=== PATIENT | male | born 1955 | race Caucasian/White ===

== ENCOUNTER 2018-11-14 09:14 | Day surgery (SDC) | payer MEDICAID ==
[~2018-11-14 09:14] MED LIST: Midazolam 1 MG/ML 2 ML SDV ONE; Propofol 200 MG/20 ML SDV ONE; fentaNYL 100 MCG/2 ML SDV ONE
[2018-11-14] MEDS ORDERED: Sodium Chloride 0.9% 1,000 ML IV SCH (09:30)
--- NOTE | 2018-11-15 08:23 | OR ---
DATE OF PROCEDURE: 11/14/2018 SURGEON: Pernell Lanza MD PROCEDURE: Colonoscopy. FINDINGS: Transverse colon polyp, completely removed using snare. COMPLICATIONS: None. DOCUMENT MANAGEMENT SPECIALIST: None. ANESTHESIA: MAC. PREOPERATIVE DIAGNOSIS: Screening colonoscopy. POSTOPERATIVE DIAGNOSIS: Screening colonoscopy. RISKS: Risks, benefits, alternatives, and limitations including, but not limited to infection bleeding and perforation were explained to the patient, who wished to proceed. PROCEDURE IN DETAIL: The patient was placed in left lateral decubitus position. Digital rectal exam was performed without abnormality. The scope was introduced atraumatically to the ileocecal valve. The scope was brought back through the ascending, transverse, descending colon, and retroflexed. The aforementioned polyp was in the transverse colon, approximately 8 mm in size, and was completely removed using snare. No other abnormalities were noted. No old or new blood. No diverticulosis or diverticulitis. No evidence of colitis. The patient tolerated the procedure well. Pernell Lanza MD /[id number]
== END 2018-11-14 12:45 | disposition home or self-care (01) ==
LOC: JP.SDS 09:14
PROVIDERS: ATTEND Surgery
DX: Z12.11 Encounter for screening for malignant neoplasm of colon (principal); D12.3 Benign neoplasm of transverse colon; E78.00 Pure hypercholesterolemia, unspecified; J44.9 Chronic obstructive pulmonary disease, unspecified; F17.200 Nicotine dependence, unspecified, uncomplicated; Z88.5 Allergy status to narcotic agent
CPT/HCPCS: 45385; J2250; J2704; J3010; J7030; 88305

== ENCOUNTER 2019-10-06 00:59 | Emergency (ER) | payer MEDICAID ==
[2019-10-06] MEDS ORDERED: 50% Dextrose in Water 50 ML Syringe IVPUSH ONE (01:49)
--- NOTE | 2019-10-06 02:00 | EDM.PDOC ---
ED HPI GENERAL MEDICAL PROBLEM - General Chief Complaint: General Stated Complaint: SOB,BODY NUMB,SORE THROAT Time Seen by Provider: 10/06/19 01:30 Source of Information: Reports: Patient History Limitations: Reports: No Limitations - History of Present Illness INITIAL COMMENTS - FREE TEXT/NARRATIVE: 63-year-old male is here because he is having trouble sleeping due to persistent heartburn. He also wants his prostate checked because he has been having trouble with urination for the past several months. No fevers or chills , he also feels that at times his lower extremities go numb. He heard that could be a symptom of the coronavirus. Onset: Unknown/Unsure Associated Symptoms: Reports: No Other Symptoms, Other (Chronic back and knee pain). Denies: Malaise, Nausea/Vomiting epigastric Pain Score (Numeric/FACES): 4 - Related Data Allergies Allergy/AdvReac Type Severity Reaction Status Date / Time oxycodone Allergy Mild Nausea and Verified 10/06/19 01:26 Vomiting Home Meds: Home Meds Acetaminophen [Tylenol Extra Strength] 1,000 mg PO BEDTIME 11/12/18 [History] Albuterol Sulfate [Albuterol Sulfate Hfa] 1 - 2 puff IH Q4H PRN 11/12/18 [ History] Albuterol/Ipratropium [Combivent Respimat] 1 puff IH QID 11/12/18 [History] Fluticasone Propionate [Flonase] 2 squirt NASBOTH DAILY 11/12/18 [History] Nicotine [Habitrol] 14 mg TOP DAILY 11/12/18 [History] atorvaSTATin Calcium [Atorvastatin Calcium] 40 mg PO DAILY 11/12/18 [History] Past Medical History HEENT History: Reports: Allergic Rhinitis, Hard of Hearing, Sinusitis, Other ( See Below) Other HEENT History: Reading glasses Cardiovascular History: Reports: High Cholesterol, Hypertension Respiratory History: Reports: COPD Gastrointestinal History: Reports: Other (See Below) Other Gastrointestinal History: acid reflux Genitourinary History: Reports: Other (See Below) Other Genitourinary History: Trouble emptying bladder Musculoskeletal History: Reports: Fracture Neurological History: Reports: Headaches, Chronic Psychiatric History: Reports: Addiction, Other (See Below) Other Psychiatric History: ETOH - Infectious Disease History Infectious Disease History: Reports: Chicken Pox, Measles - Past Surgical History Respiratory Surgical History: Reports: None GI Surgical History: Reports: Appendectomy, EGD Musculoskeletal Surgical History: Reports: Arthroscopic Procedure, Other (See Below) Other Musculoskeletal Surgeries/Procedures:: Left lower arm fx/bone graft Social & Family History - Tobacco Use Smoking Status *Q: Current Every Day Smoker Years of Tobacco use: 32 Packs/Tins Daily: 0.5 - Caffeine Use Caffeine Use: Reports: Coffee, Soda - Recreational Drug Use Recreational Drug Use: No ED ROS GENERAL - Review of Systems Review Of Systems: See Below Constitutional: Denies: Fever, Chills HEENT: Denies: Vision Change Respiratory: Reports: Shortness of Breath, Wheezing, Cough Cardiovascular: Denies: Chest Pain GI/Abdominal: Denies: Abdominal Pain, Nausea, Vomiting : Reports: Urgency, Other (Urinary hesitancy) Skin: Reports: Other (Bruises easily) Neurological: Denies: Dizziness, Headache, Difficulty Walking ED EXAM, GENERAL - Physical Exam Exam: See Below Exam Limited By: No Limitations General Appearance: Alert, No Apparent Distress Ears: Normal TMs Head: Atraumatic Respiratory/Chest: No Respiratory Distress, Wheezing (Diffuse expiratory wheezes , no rhonchi or rales) Cardiovascular: Regular Rate, Rhythm GI/Abdominal: Soft, Non-Tender Neurological: Alert, Oriented Psychiatric: Normal Affect, Normal Mood Skin Exam: Warm, Dry Course - Vital Signs Last Recorded V/S: Last Vital Signs Temp 97.6 F 10/06/19 01:30 Pulse 78 10/06/19 01:30 Resp 16 10/06/19 01:30 BP 178/89 H 10/06/19 01:30 Pulse Ox 95 10/06/19 01:30 - Re-Assessments/Exams Free Text/Narrative Re-Assessment/Exam: 10/06/19 02:04 Recommended daily omeprazole, and wrote him a prescription for 40 mg daily for 5 days, then 20 mg daily for an additional 2 weeks. Encouraged him to try to decrease his smoking, and he needs to make an appointment with his primary provider to check his prostate. Departure - Departure Time of Disposition: 02:20 Disposition: Home, Self-Care 01 Clinical Impression: Acid reflux Qualifiers: Esophagitis presence: esophagitis presence not specified Qualified Code(s): K21.9 - Gastro-esophageal reflux disease without esophagitis - Discharge Information Instructions: Heartburn, [id number] Referrals: Genie Waggoner PA [Primary Care Provider] - Forms: ED Department Discharge Care Plan Goals: Continue your current medications, and take omeprazole as directed for the next 3 weeks. Recheck with your primary provider in 2 to 3 weeks to discuss any improvement with the medication, as well as your prostate or other chronic concerns. Sepsis Event Note - Evaluation Sepsis Screening Result: No Definite Risk - Focused Exam Vital Signs: Vital Signs Temp Pulse Resp BP Pulse Ox 10/06/19 01:30 97.6 F 78 16 178/89 H 95 10/06/19 01:11 97.6 F 78 16 178/89 H 95 Date Exam was Performed: 10/06/19 Time Exam was Performed: 02:22
== END 2019-10-06 02:21 | disposition home or self-care (01) ==
LOC: JP.ED 00:59
DX: K21.9 Gastro-esophageal reflux disease without esophagitis (principal); I10 Essential (primary) hypertension; E78.00 Pure hypercholesterolemia, unspecified; J44.9 Chronic obstructive pulmonary disease, unspecified; F17.210 Nicotine dependence, cigarettes, uncomplicated; Z79.899 Other long term (current) drug therapy; Z88.6 Allergy status to analgesic agent
CPT/HCPCS: 99283

== ENCOUNTER 2019-12-21 11:40 | Emergency (ER) | payer MEDICAID ==
--- NOTE | 2019-12-21 12:09 | EDM.PDOC ---
ED HPI GENERAL MEDICAL PROBLEM - General Chief Complaint: Respiratory Problem Stated Complaint: MEDICAL [facility]IA [facility] Time Seen by Provider: 12/21/19 12:03 Source of Information: Reports: Patient, EMS History Limitations: Reports: Other (Anxious) - History of Present Illness INITIAL COMMENTS - FREE TEXT/NARRATIVE: Patient presents by ambulance from his work place after describing progressive shortness of breath over the last 3 or so days. He has a job that involves a lot of walking at his workplace and has a history of COPD on multiple inhalers. He also has been drinking heavily over the last 3 months because he lost a different job earlier in the year. In a week's time, he may go through a combined amount of distilled spirits of 3 or 4 gallons. His last drink was approximately 1600 hrs. yesterday, 19 December, He has had increasing shortness of breath at rest and also with activity and today he asked his loss to call 911. The patient has not used any inhaled medications in the last couple days. He had difficulty getting his inhaled medications over the quiroz virus timeframe because they did not want customers coming to the pharmacy and there was a co- pay with each medication so consequently they would not male medications to him without the co-pay previously arranged. He is very concerned that he is going to have DTs as that occurs when he has absence of alcohol after a period of extended use, such as now. He also is requesting a nicotine patch. He is hoping to be admitted to get him through this episode. Onset: Gradual Duration: Day(s): (2) Location: Reports: Chest, Generalized Quality: Reports: Same as Previous Episode Improves with: Reports: None Worsens with: Reports: None - Related Data Allergies Allergy/AdvReac Type Severity Reaction Status Date / Time oxycodone Allergy Mild Nausea and Verified 12/21/19 11:46 Vomiting Home Meds: Home Meds Acetaminophen [Tylenol Extra Strength] 1,000 mg PO BEDTIME 11/12/18 [History] Albuterol Sulfate [Albuterol Sulfate Hfa] 1 - 2 puff IH Q4H PRN 11/12/18 [History] Albuterol/Ipratropium [Combivent Respimat] 1 puff IH QID 11/12/18 [History] Fluticasone Propionate [Flonase] 2 squirt NASBOTH DAILY 11/12/18 [History] Nicotine [Habitrol] 14 mg TOP DAILY 11/12/18 [History] atorvaSTATin Calcium [Atorvastatin Calcium] 40 mg PO DAILY 11/12/18 [History] Budesonide/Formoterol [Symbicort 80-4.5 MCG] 1 puff INH DAILY 12/21/19 [History] Omeprazole 1 tab PO DAILY 12/21/19 [History] Terazosin HCl [Terazosin] 1 tab PO DAILY 12/21/19 [History] Past Medical History HEENT History: Reports: Allergic Rhinitis, Hard of Hearing, Sinusitis, Other (See Below) Other HEENT History: Reading glasses Cardiovascular History: Reports: High Cholesterol, Hypertension Respiratory History: Reports: COPD Gastrointestinal History: Reports: Other (See Below) Other Gastrointestinal History: acid reflux Genitourinary History: Reports: Other (See Below) Other Genitourinary History: Trouble emptying bladder Musculoskeletal History: Reports: Fracture Neurological History: Reports: Headaches, Chronic Psychiatric History: Reports: Addiction, Other (See Below) Other Psychiatric History: ETOH - Infectious Disease History Infectious Disease History: Reports: Chicken Pox, Measles - Past Surgical History Respiratory Surgical History: Reports: None GI Surgical History: Reports: Appendectomy, EGD Musculoskeletal Surgical History: Reports: Arthroscopic Procedure, Other (See Below) Other Musculoskeletal Surgeries/Procedures:: Left lower arm fx/bone graft Social & Family History - Tobacco Use Smoking Status *Q: Current Every Day Smoker Years of Tobacco use: 40 Packs/Tins Daily: 1 - Caffeine Use Caffeine Use: Reports: Coffee, Soda ED ROS GENERAL - Review of Systems Review Of Systems: See Below Constitutional: Reports: Malaise HEENT: Reports: No Symptoms Respiratory: Reports: Shortness of Breath, Wheezing, Cough Cardiovascular: Reports: Dyspnea on Exertion. Denies: Chest Pain GI/Abdominal: Reports: Abdominal Pain : Reports: No Symptoms Musculoskeletal: Reports: Other (Lateral rib pain from coughing.) Psychiatric: Reports: Anxiety ED EXAM, GENERAL - Physical Exam Exam: See Below Exam Limited By: No Limitations General Appearance: Moderate Distress Nose: Normal Inspection Head: Atraumatic Respiratory/Chest: Lungs Clear, Respiratory Distress (Mild). No: Chest Non- Tender, Rales, Rhonchi, Wheezing, Accessory Muscle Use Cardiovascular: Regular Rate, Rhythm GI/Abdominal: Soft, Non-Tender Extremities: Normal Inspection Neurological: Alert Psychiatric: Anxious EKG INTERPRETATION EKG Date: 12/21/19 Time: 12:38 Rhythm: NSR Rate (Beats/Min): 92 Adin: LAD-Left Adin Deviation P-Wave: Present QRS: Normal ST-T: Normal QT: Normal Comparison: NA - No Prior EKG Course - Vital Signs Last Recorded V/S: Last Vital Signs Temp 36.0 C L 12/21/19 14:50 Pulse 97 12/21/19 14:50 Resp 17 12/21/19 14:50 BP 143/78 H 12/21/19 14:50 Pulse Ox 97 12/21/19 14:50 - Orders/Labs/Meds Orders: Active Orders 24 hr Category Date Time Status EKG Documentation Completion [RC] ASDIRECTED Care 12/21/19 12:25 Ordered RT Aerosol Therapy [RC] ASDIRECTED Care 12/21/19 12:26 Ordered Chest 2V [CR] Stat Exams 12/21/19 12:23 Ordered Heparin Sodium/D5W [Heparin 25,000 Units in D5W 500 ML] Med 12/21/19 14:45 Ordered 25,000 units in 500 ml IV ASDIRECTED Sodium Chloride 0.9% [Saline Flush] Med 12/21/19 12:26 Ordered 10 ml FLUSH ASDIRECTED PRN Saline Lock Insert [OM.PC] Routine Oth 12/21/19 12:26 Ordered EKG 12 Lead [EK] Routine Ther 12/21/19 12:24 Ordered Medication Orders Heparin Sodium/Dextrose (Heparin 25,000 Units In D5w 500 Ml) 25,000 units in 500 mls @ 20 mls/hr IV ASDIRECTED ERNA Last Admin: 12/21/19 14:42 Dose: 1,000 units/hr, 20 mls/hr Documented by: Sodium Chloride (Saline Flush) 10 ml FLUSH ASDIRECTED PRN PRN Reason: Keep Vein Open Last Admin: 12/21/19 14:46 Dose: 10 ml Documented by: Labs: Laboratory Tests 12/21/19 12/21/19 12/21/19 Range/Units 12:58 12:58 12:58 WBC 10.5 (4.5-11.0) K/uL RBC 4.51 (4.30-5.90) M/uL Hgb 15.3 H (12.0-15.0) g/dL Hct 45.7 (40.0-54.0) % MCV 101 H (80-98) fL MCH 34 H (27-31) pg MCHC 34 (32-36) % Plt Count 198 (150-400) K/uL Neut % (Auto) 82 H (36-66) % Lymph % (Auto) 10 L (24-44) % Waller % (Auto) 8 H (2-6) % Eos % (Auto) 0 L (2-4) % Baso % (Auto) 0 (0-1) % Sodium 141 (140-148) mmol/L Potassium 3.5 L (3.6-5.2) mmol/L Chloride 99 L (100-108) mmol/L Carbon Dioxide 26 (21-32) mmol/L Anion Gap 19.5 H (5.0-14.0) mmol/L BUN 16 (7-18) mg/dL Creatinine 0.9 (0.8-1.3) mg/dL Est Cr Clr Drug Dosing 84.01 mL/min Estimated GFR (MDRD) > 60 (>60) Glucose 104 (74-106) mg/dL Lactic Acid (0.4-2.0) mmol/L Calcium 8.0 L (8.5-10.1) mg/dL Total Bilirubin 1.8 H (0.2-1.0) mg/dL AST 126 H (15-37) U/L ALT 78 (12-78) U/L Alkaline Phosphatase 173 H (46-116) U/L Troponin I 0.231 H* (0.000-0.056) ng/mL Total Protein 7.1 (6.4-8.2) g/dL Albumin 3.3 L (3.4-5.0) g/dL Globulin 3.8 H (2.3-3.5) g/dL Albumin/Globulin Ratio 0.9 L (1.2-2.2) Lipase 72 L (73-393) U/L Urine Opiates Screen (NEGATIVE) Ur Oxycodone Screen (NEGATIVE) Urine Methadone Screen (NEGATIVE) Ur Propoxyphene Screen (NEGATIVE) Ur Barbiturates Screen (NEGATIVE) Ur Tricyclics Screen (NEGATIVE) Ur Phencyclidine Scrn (NEGATIVE) Ur Amphetamine Screen (NEGATIVE) U Methamphetamines Scrn (NEGATIVE) Urine MDMA Screen (NEGATIVE) U Benzodiazepines Scrn (NEGATIVE) U Cocaine Metab Screen (NEGATIVE) U Marijuana (THC) Screen (NEGATIVE) Ethyl Alcohol mg/dL 12/21/19 12/21/19 12/21/19 Range/Units 12:58 13:28 14:30 WBC (4.5-11.0) K/uL RBC (4.30-5.90) M/uL Hgb (12.0-15.0) g/dL Hct (40.0-54.0) % MCV (80-98) fL MCH (27-31) pg MCHC (32-36) % Plt Count (150-400) K/uL Neut % (Auto) (36-66) % Lymph % (Auto) (24-44) % Waller % (Auto) (2-6) % Eos % (Auto) (2-4) % Baso % (Auto) (0-1) % Sodium (140-148) mmol/L Potassium (3.6-5.2) mmol/L Chloride (100-108) mmol/L Carbon Dioxide (21-32) mmol/L Anion Gap (5.0-14.0) mmol/L BUN (7-18) mg/dL Creatinine (0.8-1.3) mg/dL Est Cr Clr Drug Dosing mL/min Estimated GFR (MDRD) (>60) Glucose (74-106) mg/dL Lactic Acid 4.1 H (0.4-2.0) mmol/L Calcium (8.5-10.1) mg/dL Total Bilirubin (0.2-1.0) mg/dL AST (15-37) U/L ALT (12-78) U/L Alkaline Phosphatase (46-116) U/L Troponin I (0.000-0.056) ng/mL Total Protein (6.4-8.2) g/dL Albumin (3.4-5.0) g/dL Globulin (2.3-3.5) g/dL Albumin/Globulin Ratio (1.2-2.2) Lipase (73-393) U/L Urine Opiates Screen Negative (NEGATIVE) Ur Oxycodone Screen Negative (NEGATIVE) Urine Methadone Screen Negative (NEGATIVE) Ur Propoxyphene Screen Negative (NEGATIVE) Ur Barbiturates Screen Negative (NEGATIVE) Ur Tricyclics Screen Negative (NEGATIVE) Ur Phencyclidine Scrn Negative (NEGATIVE) Ur Amphetamine Screen Negative (NEGATIVE) U Methamphetamines Scrn Negative (NEGATIVE) Urine MDMA Screen Negative (NEGATIVE) U Benzodiazepines Scrn Negative (NEGATIVE) U Cocaine Metab Screen Negative (NEGATIVE) U Marijuana (THC) Screen Negative (NEGATIVE) Ethyl Alcohol 170 mg/dL Meds: Medications Generic Name Dose Route Start Last Admin Trade Name Freq PRN Reason Stop Dose Admin Heparin Sodium/Dextrose 25,000 units in 500 mls @ 20 mls/hr 12/21/19 14:45 12/21/19 14:42 Heparin 25,000 Units In D5w 500 Ml IV 1,000 units/hr ASDIRECTED ERNA 20 mls/hr Administration 1,000 UNITS/HR Sodium Chloride 10 ml 12/21/19 12:26 12/21/19 14:46 Saline Flush FLUSH 10 ml ASDIRECTED PRN Administration Keep Vein Open Discontinued Medications Generic Name Dose Route Start Last Admin Trade Name Freq PRN Reason Stop Dose Admin Albuterol/Ipratropium 3 ml 12/21/19 12:26 12/21/19 13:25 Duoneb 3.0-0.5 Mg/3 Ml NEB 12/21/19 12:27 3 ml ONETIME ONE Administration Aspirin 324 mg 12/21/19 14:31 12/21/19 14:40 Aspirin PO 12/21/19 14:32 324 mg ONETIME ONE Administration Heparin Sodium (Porcine) 4,000 units 12/21/19 14:32 12/21/19 14:40 Heparin Sodium IVPUSH 12/21/19 14:33 4,000 units ONETIME ONE Administration Lorazepam 1 mg 12/21/19 12:22 12/21/19 13:24 Ativan PO 12/21/19 12:23 1 mg ONETIME ONE Administration Lorazepam 1 mg 12/21/19 14:41 12/21/19 14:44 Ativan PO 12/21/19 14:42 1 mg ONETIME ONE Administration Methylprednisolone Sodium Succinate 60 mg 12/21/19 14:25 12/21/19 14:41 Solu-Medrol IVPUSH 12/21/19 14:26 60 mg ONETIME ONE Administration Nicotine 21 mg 12/21/19 12:45 12/21/19 13:25 Habitrol TRDERM 12/21/19 12:46 21 mg ONETIME ONE Administration - Radiology Interpretation Free Text/Narrative:: X-ray of chest ordered and reviewed by me shows some scattered right sided lung infiltrates however in the upper third of the left lung there is a almost cavitary area. - Re-Assessments/Exams Free Text/Narrative Re-Assessment/Exam: 12/21/19 12:48 His exam is reasonable right now other than anxiety, partially out of concern for withdrawal partially because he feels as though he just can't get his breath. We will give him a DuoNeb treatment and see how he feels afterwards. Is also given lorazepam 1 mg orally and a nicotine 21 mg patch was applied. He likely will need admission to get through his expected DTs and also to tune up his breathing status. 12/21/19 13:48 The patient completed a DuoNeb treatment and didn't really feel any different. On review of labs with him, his troponin is 0.231. In the context of worsening shortness of breath over the last couple of days, that is not a surprising finding. His EKG does not show any STEMI changes. I asked him where he would prefer to go for cardiology consultation and likely angiography and he wishes to go to in [place]. 12/21/19 15:17 I reviewed the case with hospitalist service and cardiology on-call at [facility]. The patient will be given aspirin 324 mg, a heparin 4000 unit IV bolus and an infusion of 1000 units per hour. He was beginning to feel a little shaky and an additional dose of lorazepam 1 mg orally was also given. He was in stable condition at the time of ambulance transfer. Departure - Departure Time of Disposition: 15:19 Disposition: DC/Tfer to Acute Hospital 02 Clinical Impression: NSTEMI (non-ST elevated myocardial infarction) COPD (chronic obstructive pulmonary disease) Qualifiers: COPD type: unspecified COPD Qualified Code(s): J44.9 - Chronic obstructive pulmonary disease, unspecified Alcohol withdrawal Qualifiers: Complication of substance-induced condition: uncomplicated Qualified Code(s): F10.230 - Alcohol dependence with withdrawal, uncomplicated - Discharge Information *PRESCRIPTION DRUG MONITORING PROGRAM REVIEWED*: Not Applicable *COPY OF PRESCRIPTION DRUG MONITORING REPORT IN PATIENT CHULA: Not Applicable Referrals: PCP,None [Primary Care Provider] - Forms: ED Department Discharge Sepsis Event Note (ED) - Evaluation Sepsis Screening Result: No Definite Risk - Focused Exam Vital Signs: Vital Signs Temp Pulse Resp BP Pulse Ox 12/21/19 14:50 36.0 C L 97 17 143/78 H 97 12/21/19 11:55 37.1 C 93 15 140/89 94 L - My Orders Last 24 Hours: My Active Orders 12/21/19 12:23 Chest 2V [CR] Stat 12/21/19 12:24 EKG 12 Lead [EK] Routine 12/21/19 12:25 EKG Documentation Completion [RC] ASDIRECTED 12/21/19 12:26 RT Aerosol Therapy [RC] ASDIRECTED Sodium Chloride 0.9% [Saline Flush] 10 ml FLUSH ASDIRECTED PRN Saline Lock Insert [OM.PC] Routine 12/21/19 14:45 Heparin Sodium/D5W [Heparin 25,000 Units in D5W 500 ML] 25,000 units in 500 ml IV ASDIRECTED - Assessment/Plan Last 24 Hours: My Active Orders 12/21/19 12:23 Chest 2V [CR] Stat 12/21/19 12:24 EKG 12 Lead [EK] Routine 12/21/19 12:25 EKG Documentation Completion [RC] ASDIRECTED 12/21/19 12:26 RT Aerosol Therapy [RC] ASDIRECTED Sodium Chloride 0.9% [Saline Flush] 10 ml FLUSH ASDIRECTED PRN Saline Lock Insert [OM.PC] Routine 12/21/19 14:45 Heparin Sodium/D5W [Heparin 25,000 Units in D5W 500 ML] 25,000 units in 500 ml IV ASDIRECTED
[2019-12-21] MEDS ORDERED: LORazepam 1 MG Tab PO ONE ×2 (12:22→14:41)
[2019-12-21] MEDS ORDERED: Sodium Chloride 0.9% 10 ML Syringe FLUSH PRN (12:26)
[2019-12-21] MEDS ORDERED: Albuterol/Ipratropium 3.0-0.5 MG/3 ML Neb Soln NEB ONE (12:26)
[2019-12-21] MEDS ORDERED: Nicotine 21 MG/24 Hr Patch TRDERM ONE (12:45)
[2019-12-21] MEDS ORDERED: methylPREDNISolone Sodium Succinate 40 MG/1 ML SDV IVPUSH ONE (14:25)
[2019-12-21] MEDS ORDERED: Aspirin 81 MG Tab.Chew PO ONE (14:31)
[2019-12-21] MEDS ORDERED: Heparin Sodium 5,000 Units/ML Vial IVPUSH ONE (14:32)
[2019-12-21] MEDS ORDERED: Heparin Sodium/D5W 25,000 UNITS/500 ML BAG IV SCH (14:45)
--- NOTE | 2019-12-22 12:39 | CR ---
CHEST: 2 view CLINICAL HISTORY:COPD COMPARISON:2018 FINDINGS: Heart size and pulmonary vascularity are normal. There is mild prominence of the right hilum. There is patchy density in the right lower lobe. The some of this is seen on the CT from October 20, 2019. There are pulmonary masses in the left upper lobe which were present in 2018. Impression: Right lower lobe patchy density is also seen in October 2019 and may represent some patchy fibrosis 2. Left upper lobe pulmonary masses similar to 2018. There are also seen on the recent CT chest.
== END 2019-12-21 15:26 ==
LOC: JP.ED 11:40
DX: I21.4 Non-ST elevation (NSTEMI) myocardial infarction (principal); J44.9 Chronic obstructive pulmonary disease, unspecified; F10.230 Alcohol dependence with withdrawal, uncomplicated; I10 Essential (primary) hypertension; E78.00 Pure hypercholesterolemia, unspecified; K21.9 Gastro-esophageal reflux disease without esophagitis; F17.210 Nicotine dependence, cigarettes, uncomplicated; Y90.6 Blood alcohol level of 120-199 mg/100 ml; Z88.5 Allergy status to narcotic agent; Z79.899 Other long term (current) drug therapy
CPT/HCPCS: 36415; 71046; 80053; 80305; 80307; 83605; 83690; 84484; 85025; 93005; 94640; 96374; 96375; 99285; A9270; J1644; J2920; J7620-GY

== ENCOUNTER 2020-01-13 21:23 | Emergency (ER) | payer MEDICAID ==
--- NOTE | 2020-01-13 22:25 | EDM.PDOC ---
ED HPI GENERAL MEDICAL PROBLEM - General Chief Complaint: Lower Extremity Injury/Pain Stated Complaint: R KNEE PAIN Time Seen by Provider: 01/13/20 22:15 Source of Information: Reports: Patient History Limitations: Reports: No Limitations - History of Present Illness INITIAL COMMENTS - FREE TEXT/NARRATIVE: 64-year-old male who has been having right knee pain off and on for years had a sudden onset of significant right knee pain and swelling after trying to get out of a chair at home about 4 hours ago. He did not fall, no specific trauma, but he felt like he was chilled and had a low-grade fever so was told to come to the emergency room. He is having difficulty bearing weight on the right knee or bending it because of the swelling and pain. Onset: Sudden (Started fairly suddenly 4 hours ago) Location: Reports: Lower Extremity, Right Associated Symptoms: Reports: Fever/Chills right knee Pain Score (Numeric/FACES): 1 - Related Data Allergies Allergy/AdvReac Type Severity Reaction Status Date / Time oxycodone Allergy Mild Nausea and Verified 01/13/20 22:07 Vomiting Home Meds: Home Meds Acetaminophen [Tylenol Extra Strength] 1,000 mg PO BEDTIME 11/12/18 [History] Albuterol Sulfate [Albuterol Sulfate Hfa] 1 - 2 puff IH Q4H PRN 11/12/18 [History] Albuterol/Ipratropium [Combivent Respimat] 1 puff IH QID 11/12/18 [History] Fluticasone Propionate [Flonase] 2 squirt NASBOTH DAILY 11/12/18 [History] Nicotine [Habitrol] 14 mg TOP DAILY 11/12/18 [History] atorvaSTATin Calcium [Atorvastatin Calcium] 40 mg PO DAILY 11/12/18 [History] Budesonide/Formoterol [Symbicort 80-4.5 MCG] 1 puff INH DAILY 12/21/19 [History] Omeprazole 1 tab PO DAILY 12/21/19 [History] Terazosin HCl [Terazosin] 1 tab PO DAILY 12/21/19 [History] Past Medical History HEENT History: Reports: Allergic Rhinitis, Hard of Hearing, Impaired Vision, Sinusitis, Other (See Below) Other HEENT History: Reading glasses Cardiovascular History: Reports: None, High Cholesterol, Hypertension Respiratory History: Reports: COPD Gastrointestinal History: Reports: GERD Other Gastrointestinal History: acid reflux Genitourinary History: Reports: Other (See Below) Other Genitourinary History: Trouble emptying bladder Musculoskeletal History: Reports: Fracture Neurological History: Reports: Headaches, Chronic Psychiatric History: Reports: Addiction, Anxiety, Depression, Other (See Below) Other Psychiatric History: ETOH - Infectious Disease History Infectious Disease History: Reports: Chicken Pox, Measles - Past Surgical History Respiratory Surgical History: Reports: None GI Surgical History: Reports: Appendectomy, EGD Musculoskeletal Surgical History: Reports: Arthroscopic Procedure, Other (See Below) Other Musculoskeletal Surgeries/Procedures:: Left lower arm fx/bone graft Social & Family History - Tobacco Use Smoking Status *Q: Current Every Day Smoker Years of Tobacco use: 45 Packs/Tins Daily: 0.5 - Caffeine Use Caffeine Use: Reports: Coffee, Soda Review of Systems - Review of Systems Review Of Systems: See Below Constitutional: Reports: Fever (Very low-grade fever prior to coming in) Eyes: Reports: No Symptoms Respiratory: Reports: No Symptoms Cardiovascular: Reports: No Symptoms Neurological: Reports: Other (Fairly persistent resting tremor from chronic alcohol abuse) ED EXAM, GENERAL - Physical Exam Exam: See Below Exam Limited By: No Limitations General Appearance: Alert, No Apparent Distress, Other (Looks uncomfortable but not distressed) Head: Atraumatic Neck: Supple, Non-Tender Respiratory/Chest: Lungs Clear Extremities: Other (Exam is otherwise limited to the lower extremities. His right knee does look swollen compared to the left. He has exquisite tenderness to palpation of the patella, the patellar tendon and the anterior tibia. Also significant pain with passive range of motion. He does have a palpable effusion.) Neurological: Alert, Oriented Psychiatric: Anxious Course - Vital Signs Last Recorded V/S: Last Vital Signs Temp 97.7 F 01/13/20 22:12 Pulse 102 H 01/13/20 22:12 Resp 18 01/13/20 22:12 BP 139/84 01/13/20 22:12 Pulse Ox 94 L 01/13/20 22:12 - Orders/Labs/Meds Orders: Active Orders 24 hr Category Date Time Status Consult to Orthopedic Clinic [CONS] Routine Cons 01/13/20 22:57 Active Knee 3V Rt [CR] Stat Exams 01/13/20 22:24 Taken Meds: Medications Discontinued Medications Generic Name Dose Route Start Last Admin Trade Name Freromario PRN Reason Stop Dose Admin Ketorolac Tromethamine 60 mg 01/13/20 22:49 01/13/20 23:09 Toradol IM 01/13/20 22:50 60 mg ONETIME ONE Administration - Re-Assessments/Exams Free Text/Narrative Re-Assessment/Exam: 01/13/20 22:55 X-ray of the knee shows no fracture but does show the effusion. He was given 60 mg of IM Toradol, a knee immobilizer was placed and should follow-up with orthopedics tomorrow if able. He was also given crutches. He was afebrile his entire visit to the emergency room, the knee was now warm or red and does not appear to be infected. 01/13/20 23:02 Patient was discharged with 10 doses of ketorolac to take every 6-8 hours until rechecked by orthopedics, and 10 doses of hydrocodone to use as directed for breakthrough pain. Departure - Departure Time of Disposition: 23:44 Disposition: Home, Self-Care 01 Clinical Impression: Effusion of right knee Right knee pain Qualifiers: Chronicity: acute Qualified Code(s): M25.561 - Pain in right knee - Discharge Information Instructions: Acute Knee Pain, Adult Referrals: Rosaline Chacon PA [Primary Care Provider] - Forms: ED Department Discharge Care Plan Goals: Wear immobilizer and use crutches tonight, take 1 pain pill every 6 hours and recheck with Dr. Bender tomorrow if possible. Call tomorrow morning for an appointment time. Sepsis Event Note (ED) - Evaluation Sepsis Screening Result: No Definite Risk - Focused Exam Vital Signs: Vital Signs Temp Pulse Resp BP Pulse Ox 01/13/20 22:12 97.7 F 102 H 18 139/84 94 L 01/13/20 21:59 97.7 F 102 H 18 139/84 94 L - My Orders Last 24 Hours: My Active Orders 01/13/20 22:24 Knee 3V Rt [CR] Stat 01/13/20 22:57 Consult to Orthopedic Clinic [CONS] Routine - Assessment/Plan Last 24 Hours: My Active Orders 01/13/20 22:24 Knee 3V Rt [CR] Stat 01/13/20 22:57 Consult to Orthopedic Clinic [CONS] Routine
[2020-01-13] MEDS ORDERED: Ketorolac 60 MG/2 ML SDV IM ONE (22:49)
--- NOTE | 2020-01-14 09:07 | CR ---
Knee 3V Rt CLINICAL HISTORY: Pain and swelling FINDINGS: No acute fracture or dislocation is noted. There are no osseous lesions. There is joint space narrowing the medial compartment and some periarticular patellar spurring. Patient is a joint effusion. Impression: Moderate osteoarthritis Joint effusion No fracture seen
== END 2020-01-13 23:45 | disposition home or self-care (01) ==
LOC: JP.ED 21:23
DX: M25.561 Pain in right knee (principal); M25.461 Effusion, right knee; I10 Essential (primary) hypertension; E78.00 Pure hypercholesterolemia, unspecified; K21.9 Gastro-esophageal reflux disease without esophagitis; J44.9 Chronic obstructive pulmonary disease, unspecified; F17.210 Nicotine dependence, cigarettes, uncomplicated; Z88.5 Allergy status to narcotic agent; Z79.899 Other long term (current) drug therapy
CPT/HCPCS: 73562; 96372; 99283; J1885

== ENCOUNTER 2024-03-27 08:43 | Day surgery (SDC) | payer MEDICARE ==
[2024-03-27] MEDS ORDERED: Propofol 200 MG/20 ML SDV ONE ×2 (09:04→10:23)
[2024-03-27] MEDS ORDERED: fentaNYL 50 MCG/ML SDV ONE (09:04)
[2024-03-27] MEDS: Sodium Chloride 0.9% 1,000 ML IV SCH (09:19)
== END 2024-03-27 11:30 | disposition home or self-care (01) ==
LOC: JP.SDS 08:43
PROVIDERS: ATTEND Surgery
DX: Z12.11 Encounter for screening for malignant neoplasm of colon (principal); D12.3 Benign neoplasm of transverse colon; I10 Essential (primary) hypertension; J44.9 Chronic obstructive pulmonary disease, unspecified; K21.9 Gastro-esophageal reflux disease without esophagitis; F17.200 Nicotine dependence, unspecified, uncomplicated; Z88.5 Allergy status to narcotic agent
CPT/HCPCS: 45390; 88305; J2704; J3010; J7030; 00811-QZ

== ENCOUNTER 2024-08-04 11:43 | Emergency (ER) | payer MEDICARE ==
[2024-08-04 12:45] LABS: BASOPHILS ABSOLUTE AUTO 0.04 K/uL (0.00-0.10); BASOPHILS PERCENT AUTO 0.4 % (0.1-1.3); EOSINOPHILS ABSOLUTE AUTO 0.17 K/uL (0.00-0.40); EOSINOPHILS PERCENT AUTO 1.6 % (0.0-5.4); HEMATOCRIT 41.7 % (38.4-49.7); HEMOGLOBIN 14.1 g/dL (12.9-16.9); IMMATURE GRAN PERCENT AUTO 0.2 % (0.0-0.7); LYMPHOCYTES ABSOLUTE AUTO 1.75 K/uL (0.8-3.3); MEAN CORPUSCULAR HEMOGLOBIN 31.3 pg (31.6-35.5); MEAN CORPUSCULAR HGB CONC 33.8 g/dL (31.6-35.5); MEAN CORPUSCULAR VOLUME 92.5 fL (81.4-99.0); MONOCYTES ABSOLUTE AUTO 0.75 K/uL (0.20-0.90); MONOCYTES PERCENT AUTO 7.3 % (3.3-12.6); NEUTROPHILS ABSOLUTE AUTO 7.59 K/uL (1.0-7.6); NEUTROPHILS PERCENT AUTO 73.5 % (40.0-78.1); PLATELET COUNT,PLT 258 K/uL (130-375); RED BLOOD CELL COUNT 4.51 M/uL (4.14-5.76); WHITE BLOOD CELL COUNT,WBC 10.3 K/uL (3.2-11.0)
[2024-08-04 12:47] LABS: IMMATURE GRAN ABSOLUTE AUTO 0.02 K/uL (0.00-0.23)
[2024-08-04 13:08] LABS: A/G RATIO 1.3 (1.2-2.2); ALANINE AMINOTRANSFERASE,ALT 18 U/L (12-78); ALKALINE PHOSPHATASE 98 U/L (46-116); ANION GAP 11.4 mmol/L (5.0-14.0); ASPARTATE AMNIOTRANSFERASE,AST 14 U/L (15-37); BILIRUBIN TOTAL 0.6 mg/dL (0.2-1.0); BLOOD UREA NITROGEN,BUN 9 mg/dL (7-18); CALCIUM 9.2 mg/dL (8.5-10.1); CARBON DIOXIDE,CO2 28 mmol/L (21-32); CHLORIDE,CL 104 mmol/L (100-108); CREATININE 0.9 mg/dL (0.8-1.3); EST CRCL DRUG DOSING (CG) 77.06 mL/min; ESTIMATED GFR 94 mL/min (>60); GLUCOSE RANDOM 104 mg/dL (74-106); POTASSIUM,K 3.6 mmol/L (3.6-5.2); SODIUM,NA 143 mmol/L (140-148)
[2024-08-04] MEDS: Ondansetron 4 MG Tab.DIS PO ONE (13:28)
== END 2024-08-04 15:05 | disposition home or self-care (01) ==
LOC: JP.ED 11:43
DX: J44.0 Chronic obstructive pulmonary disease with (acute) lower respiratory infection (principal); J20.9 Acute bronchitis, unspecified; I10 Essential (primary) hypertension; E78.00 Pure hypercholesterolemia, unspecified; F17.210 Nicotine dependence, cigarettes, uncomplicated; Z88.5 Allergy status to narcotic agent; Z79.51 Long term (current) use of inhaled steroids; Z79.899 Other long term (current) drug therapy; Z79.82 Long term (current) use of aspirin
CPT/HCPCS: 36415; 71046; 80053; 83605; 84145; 85025; 87428; 99285; Q0162